=== PATIENT | male | born 1990 | race Caucasian/White ===

== ENCOUNTER 2020-07-06 15:42 | Emergency (ER) | payer OTHER, SELFPAY ==
[2020-07-06 15:46] VITALS: BP 139/94; PULSE 83; RESP 16; TEMP 36.5; O2SAT 97; BMI 33.9
--- NOTE | 2020-07-06 16:23 | ED.BACK ---
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 States believed he pulled his back last week, and re-injured it yesterday when picking something up. Denies direct trauma/fall or injury, numbness/tingling, weakness, urinary incontinence or retention, fever, chills MD elicited complaint: back pain Related Data Allergies Allergy/AdvReac Type Severity Reaction Status Date / Time No Known Allergies Allergy Unverified 01/22/20 16:44 [No Known Allergies*] Review of Systems Review of Systems: Constitutional: No Fever, No Chills Genitourinary: No Urinary Frequency, No Urinary Incontinence/retention Musculoskeletal: +back pain, No Myalgias, No Joint Swelling Skin: No Skin Lesions, No rash Neuro: No Weakness, No Numbness, No Paresthesias Yes all other systems are reviewed and are negative [facility] Past Medical History Attestation statement: The following information was validated with the patient. Medical History (Updated 07/06/20 @ 15:48 by Leon Ayoub) No known health problems Social History Social History Advance Directives: No Advance Directives Information Provided: No Physical Exam Vital Signs: Vital Signs: Last Vital Signs Temp 97.7 F 07/06/20 15:46 Pulse 83 07/06/20 15:46 Resp 16 07/06/20 15:46 BP 139/94 H 07/06/20 15:46 Pulse Ox 97 07/06/20 15:46 Body Mass Index 33.9 Const: General: cooperative, healthy appearing, comfortable, no acute distress and well developed Orientation/consciousness: patient oriented x3 Limitations: no limitations HENMT: Head: Yes normal to inspection Ears: hearing grossly normal bilaterally General nose exam: Normal external nose present Face and sinus: Yes normal facial exam Eyes: General: appearance normal, both eyes and all related structures EOM: EOMs intact bilaterally Neck: Neck: Yes normal visual inspection and Yes no meningeal signs Resp: Effort & Inspection: normal respiratory effort Cardio: Rate: regular rate Back/Spine/Pelvis: Other: No midline thoracic/lumbar spinous tenderness or step-off/deformity. + right-sided lower lumbar MSK/buttock tenderness to palpation Skin: Rashes: no rashes Wounds: no wounds Neuro: Other: No saddle anesthesia General: patient oriented x3, gait normal, tone normal, moves all extremities and no meningeal signs Gait exam (Neuro): Normal gait present Motor exam (neuro): 5/5 motor strength present throughout Extrem: General: Yes normal to inspection MDM - Back Pain/Injury MDM Narrative Medical decision making narrative: On exam VSS, NAD/well-appearing, no midline spinous tenderness throughout, no red flag symptoms. No saddle anesthesia. Likely MSK pain/sciatica. Low concern for cauda equina/cord compression
[2020-07-06] MEDS: Ketorolac Tromethamine 30 MG/ML VIAL IM (16:31)
[2020-07-06] MEDS: Lidocaine 4 % Patch ADH..PATCH 1 PATCH TRANSDERMA (16:31)
== END 2020-07-06 16:45 | disposition home or self-care (01) ==
PROVIDERS: Emergency Provider Emergency Medicine
DX: S39.92XA Unspecified injury of lower back, initial encounter (principal); X50.0XXA Overexertion from strenuous movement or load, initial encounter; X50.3XXA Overexertion from repetitive movements, initial encounter; X50.9XXA Other and unspecified overexertion or strenuous movements or postures, initial encounter; Y93.9 Activity, unspecified; Y92.9 Unspecified place or not applicable; Y99.0 Civilian activity done for income or pay
CPT/HCPCS: 96372; 99283; J1885

== ENCOUNTER 2022-08-24 13:29 | Emergency (ER) | payer OTHER, SELFPAY ==
--- NOTE | ~2022-08-24 | XR_ITS ---
EXAMINATION: XR foot LT min 3V, XR ankle LT min 3V CLINICAL INFORMATION: Rolled ankle COMPARISON: None. TECHNIQUE: 3 views of the left foot. 2 additional views of the left ankle. FINDINGS: Left foot: No fracture or dislocation. Alignment is anatomic. Joint spaces are maintained. The soft tissues appear unremarkable. No ankle joint effusion. Plantar heel spur. Left ankle: No fracture or dislocation. The ankle mortise is congruent. The soft tissues are unremarkable. XR/XR foot LT min 3V IMPRESSION: No fracture or malalignment involving the left foot or ankle.
--- NOTE | ~2022-08-24 | XR_ITS ---
EXAMINATION: XR foot LT min 3V, XR ankle LT min 3V CLINICAL INFORMATION: Rolled ankle COMPARISON: None. TECHNIQUE: 3 views of the left foot. 2 additional views of the left ankle. FINDINGS: Left foot: No fracture or dislocation. Alignment is anatomic. Joint spaces are maintained. The soft tissues appear unremarkable. No ankle joint effusion. Plantar heel spur. Left ankle: No fracture or dislocation. The ankle mortise is congruent. The soft tissues are unremarkable. XR/XR ankle LT min 3V IMPRESSION: No fracture or malalignment involving the left foot or ankle.
[2022-08-24 13:32] VITALS: BP 137/89; PULSE 94; RESP 18; TEMP 36.9; O2SAT 98; BMI 33.9
--- NOTE | 2022-08-24 13:32 | ED_ITS ---
HPI - Extremity Injury (Lower) General Chief Complaint: Extremity Injury, Lower <DAGMAR Boyd - Last Filed: 08/24/22 13:35> Stated Complaint: ankle INJ <DAGMAR Boyd - Last Filed: 08/24/22 13:35> Time Seen by Provider: 08/24/22 14:18 <DAGMAR Boyd - Last Filed: 08/24/22 13:35> Source: patient <Kathie Castellon NP - Last Filed: 08/24/22 15:06> Mode of arrival: wheelchair <Kathie Castellon NP - Last Filed: 08/24/22 15:06> Limitations: no limitations <Kathie Castellon NP - Last Filed: 08/24/22 15:06> History of Present Illness HPI Narrative: 31-year-old male previously healthy here with complaints of left ankle and foot pain after an inversion injury which occurred yesterday. Patient reports inability to ambulate due to pain with weight-bearing. No weakness, numbness or tingling of the extremity. No previous injury to the ankle or foot. <Kathie Castellon NP - Last Filed: 08/24/22 15:06> Related Data Home Medications: Previous Rx's Medication Instructions Recorded acetaminophen 500 mg tablet 500 mg PO Q6H PRN pain or fever 07/06/20 (Tylenol Extra Strength) #20 tabs cyclobenzaprine 5 mg tablet 5 mg PO Q8H PRN pain (scale score 07/06/20 7-10) 5 days #14 tabs lidocaine 5 % topical patch 1 patch topical DAILY PRN pain #30 07/06/20 (Lidoderm) ea naproxen 500 mg tablet 500 mg PO BID PRN pain 10 days #20 07/06/20 tabs <DAGMAR Boyd - Last Filed: 08/24/22 13:35> Allergies/Adverse Reactions: Allergies Allergy/AdvReac Type Severity Reaction Status Date / Time No Known Allergies Allergy Verified 08/24/22 13:32 [No Known Allergies*] <DAGMAR Boyd Last Filed: 08/24/22 13:35> Review of Systems Review of Systems: Yes all other systems are reviewed and are negative <NAT Gudino Last Filed: 08/24/22 15:06> Constitutional: Constitutional: Reports no additional constitutional c omplaints, Denies body ache(s), Denies chills, Denies fever(s), Denies headache(s) and Denies weakness <Kathie Castellon [employer]ISTERED PUBLIC SURVEYOR - Last Filed: 08/24/22 15:06> Eyes: Eyes: Reports no additional eye complaints and Denies change in vision <Kathie Castellon [employer] PUBLIC SURVEYOR - Last Filed: 08/24/22 15:06> ENT: Reports system reviewed and no additional complaints, except as documented, Denies dizziness, Denies headache(s), Denies nasal congestion, Denies nasal discharge and Denies neck pain <Kathie Castellon [employer] SURVEYOR - Last Filed: 08/24/22 15:06> Cardiovascular: Cardiovascular: Reports no additional cardiovascular complaints, Denies chest pain, Denies leg edema and Denies dyspnea <Kathie Castellon [employer]ISTERED PUBLIC SURVEYOR - Last Filed: 08/24/22 15:06> Respiratory: Respiratory: Reports no additional respiratory complaints, Denies cough and Denies dyspnea <Kathie Castellon [employer]ISTERED PUBLIC SURVEYOR - Last Filed: 08/24/22 15:06> Gastrointestinal: Gastrointestinal: Reports no additional gastrointestinal complaints, Denies abdominal pain, Denies diarrhea, Denies nausea and Denies vomiting <Kathie Castellon [employer]ISTERED PUBLIC SURVEYOR - Last Filed: 08/24/22 15:06> Genitourinary: Genitourinary: Denies urinary incontinence <Kathie Castellon REGISTERED PUBLIC SURVEYOR - Last Filed: 08/24/22 15:06> Musculoskeletal: Musculoskeletal: Reports no additional musculoskeletal c omplaints, Denies back pain, Reports arthralgias, Reports joint swelling, Denies neck pain, Denies numbness and Denies tingling <Kathie Castellon [employer]ISTERED PUBLIC SURVEYOR - Last Filed: 08/24/22 15:06> Integumentary/Breasts: Skin/Breast: Reports system reviewed and no additional complaints, except as docu and Denies rash <Kathie Castellon [employer]ISTERED PUBLIC SURVEYOR - Last Filed: 08/24/22 15:06> Neurologic: Reports system reviewed and no additional complaints, except as documented, Denies Abnormal speech present, Denies dizziness, Denies headache(s), Denies numbness, Denies tingling and Denies weakness <Kathie Castellon NP - Last Filed: 08/24/22 15:06> FORMERLY [facility], [facility]–1983 Past Medical History Attestation statement: The following information was validated with the patient. <Kathie Castellon NP - Last Filed: 08/24/22 15:06> Source: old records reviewed and nursing notes reviewed <Kathie Castellon NP - Last Filed: 08/24/22 15:06> Medical History: Medical History No known health problems <DAGMAR Boyd - Last Filed: 08/24/22 13:35> Social History Social History: Social History Advance Directives: No <DAGMAR Boyd - Last Filed: 08/24/22 13:35> Physical Exam Vital Signs: Vital Signs: Last Vital Signs Temp 98.5 F 08/24/22 13:32 Pulse 94 08/24/22 13:32 Resp 18 08/24/22 13:32 BP 137/89 08/24/22 13:32 Pulse Ox 98 08/24/22 13:32 O2 Del Method Room Air 08/24/22 13:32 BMI result Body Mass Index 33.9 <DAGMAR Boyd - Last Filed: 08/24/22 13:35> Vital Signs: Last Vital Signs Temp 98.5 F 08/24/22 13:32 Pulse 94 08/24/22 13:32 Resp 18 08/24/22 13:32 BP 137/89 08/24/22 13:32 Pulse Ox 98 08/24/22 13:32 O2 Del Method Room Air 08/24/22 13:32 BMI result Body Mass Index 33.9 <Kathie Castellon NP - Last Filed: 08/24/22 15:06> Const: General: cooperative, healthy appearing, comfortable and no acute distress <Kathie Castellon NP - Last Filed: 08/24/22 15:06> Orientation/consciousness: patient oriented x3 <Kathie Castellon [employer] SUR[employer]YOR - Last Filed: 08/24/22 15:06> Limitations: no limitations <Kathie Castellon [employer]ED PUBLIC SURVEYOR - Last Filed: 08/24/22 15:06> HEENT: Head: Yes normal to inspection <Kathie Castellon [employer] PUBLIC SURVEYOR - Last Filed: 08/24/22 15:06> Ears: hearing grossly normal bilaterally <Kathie Castellon [employer]YOR - Last Filed: 08/24/22 15:06> General nose exam: Normal external nose present <Kathie Castellon [employer]ED PUBLIC SUR[employer]YOR - Last Filed: 08/24/22 15:06> Face and sinus: Yes normal facial exam <Kathie Castellon [employer] PUBLIC SUR[employer]YOR - Last Filed: 08/24/22 15:06> Mouth: Normal oral and palatal mucosa present <Kathie Castellon [employer]ED PUBLIC SUR[employer]YOR - Last Filed: 08/24/22 15:06> Throat: Yes posterior oropharynx normal <Kathie Castellon [employer]ISTERED PUBLIC SURVEYOR - Last Filed: 08/24/22 15:06> Eyes: General: appearance normal, both eyes and all related structures <Kathie Castellon [employer] PUBLIC SURVEYOR - Last Filed: 08/24/22 15:06> Pupils: Equal, round and reactive pupils present <Kathie Castellon [employer] PUBLIC SURVEYOR - Last Filed: 08/24/22 15:06> Neck: Neck: Yes normal visual inspection <Kathie Castellon [employer] PUBLIC SURVEYOR - Last Filed: 08/24/22 15:06> Chest: Chest palpation & inspection: normal inspection of the chest <Kathie Castellon [employer] PUBLIC SURVEYOR - Last Filed: 08/24/22 15:06> Resp: Effort & Inspection: normal respiratory effort <Kathie Castellon REGISTERED PUBLIC SURVEYOR - Last Filed: 08/24/22 15:06> Auscultation: clear to auscultation bilaterally <Kathie Castellon REGISTERED PUBLIC SURVEYOR - Last Filed: 08/24/22 15:06> Cardio: Rate: regular rate <Kathie Castellon [employer]ISTER[employer] PUBLIC SURVEYOR - Last Filed: 08/24/22 15:06> Rhythm: regular rhythm <Kathie Castellon REGISTERED PUBLIC SURVEYOR - Last Filed: 08/24/22 15:06> Peripheral pulses: Peripheral pulses 2+ throughout <Kathie Castellon [employer] PUBLIC SUR[employer]YOR - Last Filed: 08/24/22 15:06> GI: Inspection: Yes normal to inspection <Kathie Castellon [employer] PUBLIC SUR[employer]YOR - Last Filed: 08/24/22 15:06> Palpation (GI): Soft to palpation and nontender <Kathie Castellon [employer] PUBLIC SUR[employer]YOR - Last Filed: 08/24/22 15:06> Auscultation: normal bowel sounds <Kathie Castellon, REGISTERED PUBLIC SURVEYOR - Last Filed: 08/24/22 15:06> Back/Spine/Pelvis: Thoracic/Lumbar Spine: thoracic and lumbar spine normal to inspection <Kathie Castellon [employer]ISTERED PUBLIC SUR[employer]YOR - Last Filed: 08/24/22 15:06> Skin: General skin exam: no rashes or lesions noted <Kathie Castellon [employer] PUBLIC SURVEYOR - Last Filed: 08/24/22 15:06> Neuro: General: patient oriented x3, no focal motor deficits and normal sensation to monofilament <Kathie Castellon [employer]ISTERED PUBLIC SURVEYOR - Last Filed: 08/24/22 15:06> Cranial nerves: Yes Equal, round and reactive pupils present <Kathie Castellon REGISTERED PUBLIC SURVEYOR - Last Filed: 08/24/22 15:06> Cognition (Neuro): normal cognition <Kathie Castellon [employer]ISTER[employer] PUBLIC SURVEYOR - Last Filed: 08/24/22 15:06> Speech: No Abnormal speech present <Kathie Castellon REGISTERED PUBLIC SURVEYOR - Last Filed: 08/24/22 15:06> Gait exam (Neuro): Normal gait present <Kathie Castellon [employer]ISTERED PUBLIC SURVEYOR - Last Filed: 08/24/22 15:06> Motor exam (neuro): 5/5 motor strength present throughout <Kathie Castellon [employer] PUBLIC SURVEYOR - Last Filed: 08/24/22 15:06> Extrem: Other: There is tenderness on palpation over the left lateral ankle with some mild swelling. There is some mild tenderness over the medial ankle with no swelling. There is some mild tenderness to the left 5th MTP with no obvious ecchymosis or swelling. Patient is able to flex and extend the ankle actively. He has normal DP and PT pulses. Sensation is intact distally. He does have some tenderness over the posterior ankle with a negative Kennedy test. no Achilles tendon deficit <Kathie Castellon NP - Last Filed: 08/24/22 15:06> General: Yes normal to inspection <Kathie Castellon NP - Last Filed: 08/24/22 15:06> Course Course Course Narrative: RME--31yo M w/no sig PMHx c/o L ankle pain s/p rolling while walking yesterday. Admits was unable to bear weight this AM. Denies fall, numbness/tingling L ankle with mild lateral malleolus swelling and ttp. NV intact XR ordered <DAGMAR Boyd - Last Filed: 08/24/22 13:35> Medical Decision Making Medical Decision Making [facility] Narrative: 31 yo yo male here with left ankle/foot pain after inversion injury which occurred yesterday with pain with WB Will check x-ray <Kathie Castellon NP - Last Filed: 08/24/22 15:06> Differential Diagnosis Differential Diagnoses: The differential diagnosis associated with the presentation includes <Kathie Castellon NP - Last Filed: 08/24/22 15:06> fracture, sprain Less likely Achilles tendon rupture <Kathie Castellon NP - Last Filed: 08/24/22 15:06> Independent Interpretation I performed an independent interpretation of an: Plain X-Ray <Kathie Castellon NP - Last Filed: 08/24/22 15:06> Interpretation: I independently reviewed the x-ray and agree with radiologist's report <Kathie Castellon NP - Last Filed: 08/24/22 15:06> Radiology Impression Discussion of test interpretation with radiology: I have reviewed the radiologist's reading. <Kathie Castellon NP - Last Filed: 08/24/22 15:06> Radiologist Impression: [address] [address] XRay Report Signed Patient: Jhon Mesa MR#: [id number] : 1990 Acct:[id number] Age/Sex: 31 / M ADM Date: 08/24/22 Loc: HO.ED Attending Dr: Ordering Physician: Ayla Messer Date of Service: 08/24/22 Procedure(s): XR ankle LT min 3V Accession Number(s): [id number] cc: Ayla Messer~ EXAMINATION: XR foot LT min 3V, XR ankle LT min 3V CLINICAL INFORMATION: Rolled ankle COMPARISON: None. TECHNIQUE: 3 views of the left foot. 2 additional views of the left ankle. FINDINGS: Left foot: No fracture or dislocation. Alignment is anatomic. Joint spaces are maintained. The soft tissues appear unremarkable. No ankle joint effusion. Plantar heel spur. Left ankle: No fracture or dislocation. The ankle mortise is congruent. The soft tissues are unremarkable. XR/XR ankle LT min 3V IMPRESSION: No fracture or malalignment involving the left foot or ankle. ? <Kathie Castellon NP - Last Filed: 08/24/22 15:06> Discharge Plan Discharge Clinical Impression: Ankle sprain and strain <DAGMAR Boyd - Last Filed: 08/24/22 13:35> Patient Disposition: Home, Self-Care <DAGMAR Boyd - Last Filed: 08/24/22 13:35> Instructions: Ankle Sprain (DC) <DAGMAR Boyd - Last Filed: 08/24/22 13:35> Additional Instructions: Use the Demario wrap and crutches for the next few days until able to bear weight without experiencing pain Apply ice to the area Elevate the limb Take Motrin or Tylenol for pain as needed Follow-up with primary care next week for any persistent symptoms <DAGMAR Boyd - Last Filed: 08/24/22 13:35> Prescriptions: No Action acetaminophen [Tylenol Extra Strength] 500 mg tablet 500 mg PO Q6H PRN (Reason: pain or fever) Qty: 20 0RF lidocaine [Lidoderm] 5 % adhesive patch,medicated 1 patch topical DAILY MDD remove after 12 hours PRN (Reason: pain) Qty: 30 0RF Rx Instructions: leave on most painful area for up to 12 hrs naproxen 500 mg tablet 500 mg PO BID PRN (Reason: pain) 10 Days Qty: 20 0RF cyclobenzaprine 5 mg tablet 5 mg PO Q8H PRN (Reason: pain (scale score 7-10)) 5 Days Qty: 14 0RF <DAGMAR Boyd - Last Filed: 08/24/22 13:35> Referrals: Physician,Unknown J [Physician] - 1 week <DAGMAR Boyd - Last Filed: 08/24/22 13:35> Stand Alone Forms: Work/School Release <DAGMAR Boyd - Last Filed: 08/24/22 13:35> Interventions: ED Discharge Assessment Last Done: 08/24/22 15:00 <DAGMAR Boyd - Last Filed: 08/24/22 13:35> Discharge Date/Time: 08/24/22 15:00 <DAGMAR Boyd - Last Filed: 08/24/22 13:35>
== END 2022-08-24 15:00 | disposition home or self-care (01) ==
PROVIDERS: Emergency Provider Emergency Medicine
DX: S93.402A Sprain of unspecified ligament of left ankle, initial encounter (principal); S96.912A Strain of unspecified muscle and tendon at ankle and foot level, left foot, initial encounter; X50.1XXA Overexertion from prolonged static or awkward postures, initial encounter; Y93.9 Activity, unspecified; Y92.480 Sidewalk as the place of occurrence of the external cause; Y99.9 Unspecified external cause status
CPT/HCPCS: 73610; 73630; 99282; 99283

== ENCOUNTER 2023-02-08 13:27 | Outpatient (AMB) | payer OTHER, SELFPAY ==
--- NOTE | 2023-02-08 14:44 | MHC.OFFWIV ---
Intake Vital Signs 02/08/23 14:50 Height 6 ft Weight 250 lb BMI 33.9 BP 122/76 Blood Pressure Location Rt brachial Position Sitting Pulse 80 Pulse Source Pulse Oximeter Temp 96.6 F L Temp Source Temporal Artery Scan Pulse Oximetry (%) 98 Oxygen Delivery Method Room Air Intake Visit Reasons: EST/work clearance from covid/[phone] Intake Note: Pt is here requesting a letter to return back to work after testing positive for COVID. Pt states he has a strong urine odor as well. Patient Tobacco Use Status: Never used Tobacco Allergies No Known Allergies [No Known Allergies*] Allergy (Verified 02/08/23 14:44) Do you need a note to return to daycare/school/sports/work: Yes HPI HPI Comments History of Present Illness Details The patient presents to urgent care for medical clearance. He was recently diagnosed with COVID and home for the past 3 days. He had COVID last week and believes he had it about 15 days ago. He was still testing positive over the weekend and recently had a negative COVID test yesterday. His work needs a note PFSH Medical History No known health problems Social History Patient Tobacco Use Status: Never used Tobacco Physical Exam Vital Signs: Last Vital Signs Temp 96.6 F L 02/08/23 14:50 Pulse 80 02/08/23 14:50 BP 122/76 02/08/23 14:50 Pulse Ox 98 02/08/23 14:50 Oxygen Delivery Method Room Air 02/08/23 14:50 BMI result Body Mass Index 33.9 Const General: healthy appearing and no acute distress Orientation/consciousness: patient oriented x3 Eyes Corneas: corneas normal Pupils: Equal, round and reactive pupils present Resp Effort & Inspection: normal respiratory effort and able to speak in complete sentences Neuro General: patient oriented x3 Cranial nerves: Yes Equal, round and reactive pupils present Psych Appearance: grossly normal Attitude: cooperative Results AMB Urinalysis, Automated UA Leukoctes 0 Jassi/uL Last Edit by Doreen Otto CMA on 02/08/23 14:58 UA Nitrite Negative Last Edit by Doreen Otto CMA on 02/08/23 14:58 UA Urobilinogen 0.2 mg/dL Last Edit by Doreen Otto, TRIP on 02/08/23 14:58 UA Protein 0 mg/dL Last Edit by Doreen Otto, TRIP on 02/08/23 14:58 UA pH 6.0 Last Edit by Doreen Otto, TRIP on 02/08/23 14:58 UA Blood 0 Edwin/uL Last Edit by Doreen Otto, TRIP on 02/08/23 14:58 UA Specific Mclean 1.020 Last Edit by Doreen Otto, TRIP on 02/08/23 14:58 UA Ketone Negative Last Edit by Doreen Otto, TRIP on 02/08/23 14:58 UA Bilirubin 0 mg/dL Last Edit by Doreen Otto, TRIP on 02/08/23 14:58 UA Glucose 0 mg/dL Last Edit by Doreen Otto, TRIP on 02/08/23 14:58 Results Reviewed Results Reviewed: Laboratory Last Values Urine pH (Auto) 6.0 02/08/23 14:58 Specific Mclean (Auto) 1.020 02/08/23 14:58 Urine Protein (Auto) 0 mg/dL 02/08/23 14:58 Glucose (UA)(Auto) 0 mg/dL 02/08/23 14:58 Urine Ketones (Auto) Negative 02/08/23 14:58 Urine Blood (Auto) 0 Edwin/uL 02/08/23 14:58 Urine Nitrite (Auto) Negative 02/08/23 14:58 Urine Bilirubin (Auto) 0 mg/dL 02/08/23 14:58 Urine Urobilinogen (Auto) 0.2 mg/dL 02/08/23 14:58 Leukocyte Esterase (Auto) 0 Jassi/uL 02/08/23 14:58 Assessment & Plan Assessment & Plan (1) Return to work evaluation: Code(s): Z76.89 - Persons encountering health services in other specified circumstances Plan The patient is medically cleared to return to work. Of note he had a UA done in the office today because he complained of strong odor to his urine x3 weeks. UA is negative Orders: Orders AMB Urinalysis Automated Today Z13.9 - Encounter for screening, unspecified Coding Level of Care Code Est Pt Level 3 (01044) Diagnoses Return to work evaluation Z76.89
[2023-02-08 14:50] VITALS: BP 122/76; PULSE 80; TEMP 35.9; O2SAT 98; BMI 33.9
== END 2023-02-08 15:08 | disposition home or self-care (01) ==
PROVIDERS: Visit Provider Emergency Medicine
DX: R82.998 Other abnormal findings in urine (principal); Z76.89 Persons encountering health services in other specified circumstances
CPT/HCPCS: 81003; 99213

== ENCOUNTER 2023-04-14 15:38 | Emergency (ER) | payer OTHER, SELFPAY ==
--- NOTE | ~2023-04-14 | CT_ITS ---
EXAMINATION: CT ABDOMEN AND PELVIS WITHOUT CONTRAST CLINICAL INFORMATION: Bilateral flank pain, question etiology. COMPARISON: CT abdomen and pelvis 06/05/2016. TECHNIQUE: Multidetector volumetric imaging was performed from the superior aspect of the liver through the pubic symphysis. Sagittal and coronal reformatted images were obtained on the technologist's workstation. This CT examination was performed using dose optimization techniques as appropriate, variously including the following: *Automated exposure control *Adjustment of mA and/or kV according to patient size (this includes techniques or standardized protocols for targeted exams where dose is matched to indication/reason for exam; i.e. extremities or head) *Use of iterative reconstruction technique DLP: 800 mGy-cm FINDINGS: LUNG BASES: The visualized lung bases are unremarkable. LIVER, GALLBLADDER, AND BILIARY TREE: The liver is normal in size, shape, and attenuation. No focal hepatic lesion or biliary ductal dilatation is present. The gallbladder is unremarkable with no evidence of radiopaque gallstones, gallbladder wall thickening, or obvious pericholecystic inflammatory changes. PANCREAS: No discrete mass or ductal dilatation. SPLEEN: Enlarged spleen measuring 15 cm. ADRENAL GLANDS: Normal; no mass. KIDNEYS AND URETERS: The kidneys are normal in size, shape, and attenuation. No hydronephrosis, hydroureter, or calculi seen. No perinephric stranding. BLADDER: Unremarkable. GASTROINTESTINAL TRACT: The small and large bowel are normal in caliber. The appendix is normal. No evidence of enteritis or colitis. No mesenteric mass or fluid. ABDOMINAL WALL: No significant hernia is appreciated. LYMPH NODES: No adenopathy. VASCULAR: Normal caliber aorta. Duplicated IVC. PELVIC VISCERA: Unremarkable. OSSEOUS STRUCTURES: Stable sclerotic lesion in the right iliac bone consistent with bone island. CT/CT abdomen pelvis wo IV con IMPRESSION: No acute findings in the abdomen/pelvis to correlate with bilateral flank pain. No nephrolithiasis or hydronephrosis. Mild splenomegaly measuring 15 cm similar to prior study. Fleischner guidelines do not apply in this age group.
[2023-04-14 15:54] VITALS: BP 126/85; PULSE 109; RESP 19; TEMP 37.1; O2SAT 100; BMI 35.2
[2023-04-14 16:36] LABS: MANUAL DIFF FLAG NO
--- NOTE | 2023-04-14 16:48 | ED.GENADULT ---
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 2 days ago when he came home he was doing fine no prior low back pain, woke up in the morning the pain bilateral lumbar area increases on certain movements no nausea no vomiting no hematuria no urinary symptoms no fever no chills no family history of kidney stone no lower extremity weakness or paresthesia Related Data Previous Rx's Medication Instructions Recorded cyclobenzaprine 10 mg tablet 10 mg PO Q8H #20 tabs 04/14/23 oxycodone-acetaminophen 5 mg-325 1 tab PO Q6H PRN pain #20 tabs 04/14/23 mg tablet (Percocet) Allergies Allergy/AdvReac Type Severity Reaction Status Date / Time No Known Allergies Allergy Verified 02/08/23 14:44 [No Known Allergies*] Review of Systems Review of Systems: Yes all other systems are reviewed and are negative FOR[facility]LY [facility] Past Medical History Medical History No known health problems Social History Social History Patient Tobacco Use Status: Never used Tobacco Advance Directives: No Advance Directives Information Provided: No Physical Exam ED Vital Signs: Vital Signs - 24 hr 04/14/23 15:54 04/14/23 17:28 Temperature 98.7 F 100.4 F Pulse Rate 109 H 102 H Respiratory Rate 19 18 Blood Pressure 126/85 129/84 Pulse Oximetry 100 97 Oxygen Delivery Method Room Air Room Air BMI result Body Mass Index 35.2 Appearance: Alert. Oriented X3. No acute distress. Eyes: PERRLA, No Nystagmus ENT: Pharynx normal. Oral Mucosa moist Neck: Normal inspection. Neck supple. CVS: Normal heart rate and rhythm. Pulses normal. Respiratory: No respiratory distress. Equal air entry bilateral, no wheezing/rales/rhonchi Abdomen: Soft and nontender. Bowel sounds are present, no mass palpable, no CVA tenderness Back: Diffuse tendon at lower lumbar paraspinal area no deformity SLR negative b/l Skin: Skin warm and dry. Normal skin color. Normal skin turgor. Extremities: No lower extremity edema. No calf tenderness Neuro: Oriented X 3. No motor deficit. No sensory deficit.No cerebellar signs , cranial nerves II-XII intact Medical Decision Making Differential Diagnosis Differential Diagnoses: The differential diagnosis associated with the presentation includes UTI/back strain/sciatica/kidney stone Lab Data MDM Lab Attestation statement: I reviewed the patient's lab results. 04/14/23 16:30 04/14/23 16:30 Labs: Lab Results 04/14/23 04/14/23 Range/Units 16:30 17:34 WBC 5.8 (4.8-10.8) X10*3/uL RBC 5.14 (4.60-5.80) X10*6/uL Hgb 15.2 (14.0-18.0) g/dl Hct 43.9 (42.0-52.0) % MCV 85.4 (80.0-98.0) fL MCH 29.6 (27.0-33.0) pg MCHC 34.6 (31.0-36.0) g/dl RDW 12.0 (11.0-16.0) % Plt Count 153 L (160-400) X10*3/uL MPV 10.1 (9.4-12.4) fL Immature Gran % (Auto) 0.3 (0.0-0.4) % Neut % (Auto) 82.9 H (45-73) % Lymph % (Auto) 8.9 L (20-40) % [place] % (Auto) 7.7 (2-11) % Eos % (Auto) 0.0 (0-4) % Baso % (Auto) 0.2 (0-2) % Lymph # (Auto) 0.5 L (1.2-4.9) X10*3/uL [place] # (Auto) 0.5 (0.1-1.2) X10*3/uL Eos # (Auto) 0.0 (0.0-0.4) X10*3/uL Baso # (Auto) 0.0 (0.0-0.2) X10*3/uL Abs Immat Gran (auto) 0.02 (0.00-0.03) X10*3/uL Absolute Neuts (auto) 4.8 (2.0-8.3) x10*3/uL Absolute Nucleated RBC 0.000 (0.0-0.012) X10*3/uL Nucleated RBC % (auto) 0.0 (0.0-0.2) /100WBC Sodium 138 (135-145) mmol/L Potassium 3.8 (3.3-5.1) mmol/L Chloride 106 (96-108) mmol/L Carbon Dioxide 19 L (22-29) mmol/L Anion Gap 17 (12-20) BUN 10 (9-16) mg/dL Creatinine 1.08 (0.5-1.4) mg/dL Estim Creat Clear Calc 128.8 Estimated GFR > 60 Random Glucose 125 H (60-115) mg/dL Calcium 9.8 (8.4-10.2) mg/dL Total Bilirubin 0.4 (0.0-1.0) mg/dL Direct Bilirubin 0.2 (0.0-0.5) mg/dL AST 25 (5-37) U/L ALT 16 (0-40) U/L Alkaline Phosphatase 68 (39-117) U/L Total Protein 7.6 (6.5-8.0) g/dL Albumin 4.5 (3.5-5.0) g/dL Lipase 14 (8-78) U/L Urine Color Yellow Urine Appearance Clear Urine pH 6.0 (5.0-9.0) Ur Specific [place] 1.010 (1.005-1.025) Urine Protein Negative (Neg-Trace) mg/dL Urine Glucose (UA) Negative (Negative) mg/dL Urine Ketones Negative (Negative) mg/dL Urine Blood Negative (Negative) Urine Nitrite Negative (Negative) Ur Leukocyte Esterase Negative (Negative) Independent Interpretation I performed an independent interpretation of an: CT Scan Interpretation: Negative acute Radiology Impression Discussion of test interpretation with radiology: I have reviewed the radiologist's reading. Discharge Plan Discharge Clinical Impression: Low back strain Patient Disposition: Home, Self-Care Instructions: Low Back Strain (ED) Additional Instructions: Take pain medication muscle relaxants as prescribed Apply ice pack Follow with PCP if pain gets worse or not better Prescriptions: New cyclobenzaprine 10 mg tablet 10 mg PO Q8H Qty: 20 0RF oxycodone-acetaminophen [Percocet] 5-325 mg tablet 1 tab PO Q6H PRN (Reason: pain) Qty: 20 0RF Rx Instructions: Partial Fill upon patient request.
[2023-04-14 16:51] LABS: Alanine Aminotransferase 16 U/L (0-40); Albumin Level 4.5 g/dL (3.5-5.0); Alkaline Phosphatase 68 U/L (39-117); Anion Gap 17 (12-20); Aspartate Amino Transferase 25 U/L (5-37); Bilirubin Direct 0.2 mg/dL (0.0-0.5); Bilirubin Total 0.4 mg/dL (0.0-1.0); Blood Urea Nitrogen 10 mg/dL (9-16); Calcium 9.8 mg/dL (8.4-10.2); Carbon Dioxide 19 mmol/L (22-29); Chloride 106 mmol/L (96-108); Creatinine Clr Calc Pharmacy 128.8; Estimated Glomerular Filt Rate > 60; Glucose Random 125 mg/dL (60-115); Lipase 14 U/L (8-78); Potassium 3.8 mmol/L (3.3-5.1); Sodium 138 mmol/L (135-145); Total Protein 7.6 g/dL (6.5-8.0)
[2023-04-14 16:52] LABS: Basophils Percent Auto 0.2 % (0-2); Hematocrit 43.9 % (42.0-52.0); Hemoglobin 15.2 g/dl (14.0-18.0); Imm Gran Abs Auto 0.02 X10*3/uL (0.00-0.03); Imm Gran Pct Auto 0.3 % (0.0-0.4); Lymphocytes Absolute Auto 0.5 X10*3/uL (1.2-4.9); Lymphocytes Percent Auto 8.9 % (20-40); Mean Corpuscular HGB Conc 34.6 g/dl (31.0-36.0); Mean Corpuscular Hemoglobin 29.6 pg (27.0-33.0); Mean Corpuscular Volume 85.4 fL (80.0-98.0); Mean Platelet Volume 10.1 fL (9.4-12.4); Monocytes Absolute Auto 0.5 X10*3/uL (0.1-1.2); Monocytes Percent Auto 7.7 % (2-11); Neutrophils Absolute Auto 4.8 x10*3/uL (2.0-8.3); Neutrophils Percent Auto 82.9 % (45-73); Platelet Count 153 X10*3/uL (160-400); Red Blood Count 5.14 X10*6/uL (4.60-5.80); White Blood Count 5.8 X10*3/uL (4.8-10.8)
[2023-04-14 17:28] VITALS: BP 129/84; PULSE 102; RESP 18; TEMP 38; O2SAT 97
[2023-04-14 17:38] LABS: Appearance Urine Clear; Color Urine Yellow; Glucose Urine UA Negative (Negative); Leukocyte Esterase Urine Negative (Negative); Nitrite Urine Negative (Negative); Urine Blood Negative (Negative); Urine Ketones Negative (Negative); Urine Protein Negative (Neg-Trace)
[2023-04-14 19:05] VITALS: BP 130/78; PULSE 93; RESP 14; TEMP 37.4; O2SAT 98
[2023-04-14] MEDS: Cyclobenzaprine HCl 10 MG TABLET PO (19:06)
[2023-04-14] MEDS: oxyCODONE HCl Immed Release 5 MG TABLET 10 MG PO (19:06)
== END 2023-04-14 19:09 | disposition home or self-care (01) ==
PROVIDERS: Emergency Provider Internal Medicine
DX: S39.012A Strain of muscle, fascia and tendon of lower back, initial encounter (principal); X58.XXXA Exposure to other specified factors, initial encounter; Y93.9 Activity, unspecified; Y92.9 Unspecified place or not applicable; Y99.9 Unspecified external cause status; R10.9 Unspecified abdominal pain; R16.1 Splenomegaly, not elsewhere classified
CPT/HCPCS: 36415; 74176; 80053; 81003; 82248; 83690; 85025; 99284

== ENCOUNTER 2024-10-06 15:10 | Emergency (ER) | payer OTHER, SELFPAY ==
--- NOTE | ~2024-10-06 | XR_ITS ---
EXAMINATION: XR CHEST CLINICAL INFORMATION: SOB COMPARISON: None available. TECHNIQUE: 2 views of the chest were obtained. FINDINGS: The cardiac, hilar, and mediastinal contours are normal. The lungs are clear bilaterally. There is no pneumothorax or pleural effusion. There is no focal osseous or soft tissue abnormality. XR/XR chest 2V IMPRESSION: Normal chest. Electronically signed by: Dedrick Quispe MD 10/06/2024 03:46 PM EDT
[2024-10-06 15:21] VITALS: BP 127/79; PULSE 83; RESP 18; TEMP 36; O2SAT 98; BMI 34.7
--- NOTE | 2024-10-06 15:22 | ED.GENADULT ---
HPI - General Adult General Chief complaint: Dyspnea Stated complaint: sob,cough Time Seen by Provider: 10/06/24 20:18 Source: patient Mode of arrival: ambulatory Limitations: no limitations History of Present Illness ED Provider: HPI narrative: patient otherwise healthy complaining of cough for last 1 week cough is mostly dry with wheezing in the night , mucoid phlegm patient is a cigarette smoker other family member were also sick at home Related Data Previous Rx's ?Medication ?Instructions ?Recorded cyclobenzaprine 10 mg tablet 10 mg PO Q8H #20 tabs 04/14/23 oxycodone-acetaminophen 5 mg-325 1 tab PO Q6H PRN pain #20 tabs 04/14/23 mg tablet (Percocet) albuterol sulfate 90 mcg/actuation 2 puff inhalation Q6H PRN 10/06/24 aerosol inhaler shortness of breath or wheezing #8.5 grams cefuroxime axetil 500 mg tablet 500 mg PO BID 7 days #14 tabs 10/06/24 guaifenesin 600 mg tablet, 600 mg PO Q12H PRN cough #20 tabs 10/06/24 extended release 12 hr (Mucinex) prednisone 20 mg tablet 40 mg (2 x 20 mg) PO DAILY #10 tabs 10/06/24 Allergies Allergy/AdvReac Type Severity Reaction Status Date / Time No Known Allergies Allergy Verified 10/06/24 15:24 [No Known Allergies*] Review of Systems Review of Systems: Yes all other systems are reviewed and are negative PMFSH Past Medical History Medical History No known health problems Social History Social History Patient Tobacco Use Status: Never used Tobacco Smoked in Last 30 Days: Yes Substance Use Type: Marijuana Substance Use Frequency: Occasionally Advance Directives: No Advance Directives Information Provided: Yes Physical Exam ED Vital Signs: Vital Signs - 24 hr 10/06/24 15:21 10/06/24 19:47 10/06/24 21:47 Temperature 96.8 F 98.5 F 98.5 F Pulse Rate 83 68 Respiratory Rate 18 18 18 Blood Pressure 127/79 120/78 133/89 Pulse Oximetry 98 98 Oxygen Delivery Method Room Air Room Air BMI result Body Mass Index 34.7 Appearance: Alert. Oriented X3. No acute distress. Eyes: no pallor or icterus ENT: Pharynx normal Oral Mucosa moist tympanic membrane intact no erythema, Neck: Normal inspection. Neck supple. CVS: Normal heart rate and rhythm. Pulses normal. Respiratory: No respiratory distress. Equal air entry bilateral, no wheezing/rales/rhonchi bilateral prolonged expiration Abd: soft, not tender Skin: Skin warm and dry. Normal skin color. Normal skin turgor. Extremities: No lower extremity edema, no calf tenderness Neuro: Oriented X 3. Course Course Course Narrative: This is an RME: Additional HPI, ROS, PE not included below will be deferred to primary provider. RME assessment and note performed by: Darlin Johnson PA-C This is a [id number]-male, with no known medical problems, who presents to the ER with complaints of cough and shortness of breath. Reports that while he was sleeping he awoke and felt like he couldn't catch his breath. He states that this lasted for 15 minutes and could not resolve. No recent travel, hospitalizations or surgeries. He is a smoker. Plan: labs, EKG, viral swabs, further ER evaluation needed. Medications Administered Discontinued Medications Generic Name Dose Route Start Last Admin Trade Name Freq PRN Reason Stop Dose Admin Albuterol Sulfate 4 puff 10/06/24 21:28 10/06/24 21:36 Albuterol Sulfate 90 Mcg 8 Gm Inhaler INHALE 10/06/24 21:29 4 puff ONCE ONE Administration Cefuroxime Axetil 500 mg 10/06/24 21:28 10/06/24 21:36 Cefuroxime Axetil 500 Mg Tablet PO 10/06/24 21:29 500 mg ONCE ONE Administration Prednisone 60 mg 10/06/24 21:28 10/06/24 21:36 Prednisone 20 Mg Tablet PO 10/06/24 21:29 60 mg ONCE ONE Administration Medical Decision Making Medical Decision Making [facility] Narrative: patient has acute bronchitis will give inhaler prednisone antibiotic chest x-ray negative for pneumonia Lab Data [facility] Lab Attestation statement: I reviewed the patient's lab results. 10/06/24 16:40 10/06/24 16:40 Labs: Lab Results 10/06/24 Range/Units 16:40 WBC 7.4 (4.8-10.8) X10*3/uL RBC 4.72 (4.60-5.80) X10*6/uL Hgb 14.1 (14.0-18.0) g/dl Hct 42.7 (42.0-52.0) % MCV 90.5 (80.0-98.0) fL MCH 29.9 (27.0-33.0) pg MCHC 33.0 (31.0-36.0) g/dl RDW 13.0 (11.0-16.0) % Plt Count 204 D (160-400) X10*3/uL MPV 10.7 (9.4-12.4) fL Immature Gran % (Auto) 0.5 H (0.0-0.4) % Neut % (Auto) 61.0 (45-73) % Lymph % (Auto) 30.6 (20-40) % [place] % (Auto) 7.1 (2-11) % Eos % (Auto) 0.5 (0-4) % Baso % (Auto) 0.3 (0-2) % Lymph # (Auto) 2.3 (1.2-4.9) X10*3/uL [place] # (Auto) 0.5 (0.1-1.2) X10*3/uL Eos # (Auto) 0.0 (0.0-0.4) X10*3/uL Baso # (Auto) 0.0 (0.0-0.2) X10*3/uL Abs Immat Gran (auto) 0.04 H (0.00-0.03) X10*3/uL Absolute Neuts (auto) 4.5 (2.0-8.3) x10*3/uL Absolute Nucleated RBC 0.000 (0.0-0.012) X10*3/uL Nucleated RBC % (auto) 0.0 (0.0-0.2) /100WBC Sodium 143 (135-145) mmol/L Potassium 4.2 (3.3-5.1) mmol/L Chloride 110 H (96-108) mmol/L Carbon Dioxide 26 (22-29) mmol/L Anion Gap 11 L (12-20) BUN 21 H (9-16) mg/dL Creatinine 1.23 (0.5-1.4) mg/dL Estim Creat Clear Calc 111.2 Estimated GFR > 60 Random Glucose 88 (60-115) mg/dL Calcium 9.7 (8.4-10.2) mg/dL Magnesium 2.2 (1.6-2.6) mg/dL Total Bilirubin 0.2 (0.0-1.0) mg/dL Direct Bilirubin < 0.2 (0.0-0.5) mg/dL AST 16 (5-37) U/L ALT 9 (0-40) U/L Alkaline Phosphatase 70 (39-117) U/L Troponin I High Sens < 2.7 (<3.5-35.0) ng/L Total Protein 7.1 (6.5-8.0) g/dL Albumin 4.5 (3.5-5.0) g/dL Influenza Type A (PCR) NEGATIVE (Negative) Influenza Type B (PCR) NEGATIVE (Negative) RSV RNA Qual (PCR) NEGATIVE (Negative) SARS-CoV-2 RNA (RT-PCR) NEGATIVE (Negative) Independent Interpretation I performed an independent interpretation of an: Plain X-Ray Discharge Plan Discharge Clinical Impression: Acute bronchitis Patient Disposition: Home, Self-Care Instructions: Acute Bronchitis (ED) Additional Instructions: take antibiotics prednisone inhaler as prescribed cough drops as prescribed stop smoking follow up with your PCP if not better Prescriptions: New prednisone 20 mg tablet 40 mg PO DAILY Qty: 10 0RF cefuroxime axetil 500 mg tablet 500 mg PO BID 7 Days Qty: 14 0RF guaifenesin [Mucinex] 600 mg tablet extended release 12hr 600 mg PO Q12H PRN (Reason: cough) Qty: 20 0RF albuterol sulfate 90 mcg/actuation HFA aerosol inhaler 2 puff inhalation Q6H PRN (Reason: shortness of breath or wheezing) Qty: 8.5 0RF No Action cyclobenzaprine 10 mg tablet 10 mg PO Q8H Qty: 20 0RF oxycodone-acetaminophen [Percocet] 5-325 mg tablet 1 tab PO Q6H PRN (Reason: pain) Qty: 20 0RF Rx Instructions: Partial Fill upon patient request. Stand Alone Forms: Work/School Release Interventions: ED Discharge Assessment Last Done: 10/06/24 21:47 Discharge Date/Time: 10/06/24 21:48 Print Language: [place]
--- NOTE | 2024-10-06 15:25 | ECG_ITS ---
Test Reason : dyspnea Blood Pressure : */* mmHG Vent. Rate : 79 BPM Atrial Rate : 79 BPM P-R Int : 198 ms QRS Dur : 72 ms QT Int : 362 ms P-R-T Axes : 44 41 34 degrees QTcB Int : 415 ms Normal sinus rhythm Normal ECG No previous ECGs available Referred By: Darlin Johnson Electronically Signed By: ESTHELA AMANDA
[2024-10-06 16:46] LABS: MANUAL DIFF FLAG NO
[2024-10-06 17:02] LABS: Basophils Percent Auto 0.3 % (0-2); Eosinophils Percent Auto 0.5 % (0-4); Hematocrit 42.7 % (42.0-52.0); Hemoglobin 14.1 g/dl (14.0-18.0); Imm Gran Abs Auto 0.04 X10*3/uL (0.00-0.03); Imm Gran Pct Auto 0.5 % (0.0-0.4); Lymphocytes Absolute Auto 2.3 X10*3/uL (1.2-4.9); Lymphocytes Percent Auto 30.6 % (20-40); Mean Corpuscular Hemoglobin 29.9 pg (27.0-33.0); Mean Corpuscular Volume 90.5 fL (80.0-98.0); Mean Platelet Volume 10.7 fL (9.4-12.4); Monocytes Absolute Auto 0.5 X10*3/uL (0.1-1.2); Monocytes Percent Auto 7.1 % (2-11); Neutrophils Absolute Auto 4.5 x10*3/uL (2.0-8.3); Platelet Count 204 X10*3/uL (160-400); Red Blood Count 4.72 X10*6/uL (4.60-5.80); White Blood Count 7.4 X10*3/uL (4.8-10.8)
[2024-10-06 17:06] LABS: Alanine Aminotransferase 9 U/L (0-40); Albumin Level 4.5 g/dL (3.5-5.0); Alkaline Phosphatase 70 U/L (39-117); Anion Gap 11 (12-20); Aspartate Amino Transferase 16 U/L (5-37); Bilirubin Direct < 0.2 mg/dL (0.0-0.5); Bilirubin Total 0.2 mg/dL (0.0-1.0); Blood Urea Nitrogen 21 mg/dL (9-16); Calcium 9.7 mg/dL (8.4-10.2); Carbon Dioxide 26 mmol/L (22-29); Chloride 110 mmol/L (96-108); Creatinine Clr Calc Pharmacy 111.2; Estimated Glomerular Filt Rate > 60; Glucose Random 88 mg/dL (60-115); Magnesium 2.2 mg/dL (1.6-2.6); Potassium 4.2 mmol/L (3.3-5.1); Sodium 143 mmol/L (135-145); Total Protein 7.1 g/dL (6.5-8.0)
[2024-10-06 17:16] LABS: Troponin-I High Sensitivity < 2.7 ng/L (<3.5-35.0)
[2024-10-06 17:41] LABS: Influenza A PCR NEGATIVE (Negative); Influenza B PCR NEGATIVE (Negative); Resp Syncy Virus RNA Qual PCR NEGATIVE (Negative); SARS COV2 PCR INHOUSE NEGATIVE (Negative)
[2024-10-06 19:47] VITALS: BP 120/78; RESP 18; TEMP 36.9
--- NOTE | 2024-10-06 19:51 | PC.NURSE ---
Pt resting on stretcher, not short of breath or coughing at this time. Awaiting provider to see patient.
[2024-10-06] MEDS: Albuterol Sulfate 90 MCG 8 GM INHALER 4 PUFF INHALE (21:36)
[2024-10-06] MEDS: predniSONE 20 MG TABLET 60 MG PO (21:36)
[2024-10-06] MEDS: cefuroxime axetiL 500 MG TABLET PO (21:36)
[2024-10-06 21:47] VITALS: BP 133/89; PULSE 68; RESP 18; TEMP 36.9; O2SAT 98
== END 2024-10-06 21:48 | disposition home or self-care (01) ==
PROVIDERS: Physician Assistant Medical; Emergency Provider Internal Medicine
DX: J20.9 Acute bronchitis, unspecified (principal); R06.02 Shortness of breath; R05.9 Cough, unspecified; F17.210 Nicotine dependence, cigarettes, uncomplicated; Z79.899 Other long term (current) drug therapy; Z03.818 Encounter for observation for suspected exposure to other biological agents ruled out
CPT/HCPCS: 0241U; 71046; 80048; 80076; 83735; 84484; 85025; 93005; 99284

== ENCOUNTER → 2024-10-06 15:24 | Outpatient (BNV) | payer OTHER, SELFPAY | PROVIDERS: Visit Provider Radiology Diagnostic Radiology | DX: R06.02 Shortness of breath (principal) | CPT/HCPCS: 71046 ==

== ENCOUNTER → 2024-10-06 15:25 | Outpatient (BNV) | payer OTHER, SELFPAY | PROVIDERS: Emergency Provider Internal Medicine; Visit Provider Internal Medicine | DX: R06.00 Dyspnea, unspecified (principal) | CPT/HCPCS: 93010 ==

== ENCOUNTER 2025-04-21 11:04 | Emergency (ER) | payer OTHER, SELFPAY ==
--- NOTE | ~2025-04-21 | CT_ITS ---
EXAMINATION: CT ABDOMEN PELVIS WITH IV CONTRAST HISTORY: abd pain epigastric elevated lipase COMPARISON: Comparison is made with the prior examination dated 04/14/2023. TECHNIQUE: CT scan of the abdomen and pelvis was performed following administration of 85 mL Omnipaque 350 using standard departmental protocol. Coronal and sagittal reformatted images were generated and reviewed. Oral contrast material was not administered at the request of the referring physician. This CT exam was performed with one or more of the following dose reduction techniques: automated exposure control, adjustment of the mA and/or kV according to patient size, use of iterative reconstruction technique. DLP: 698 mGy-cm FINDINGS: LOWER CHEST: The visualized lung bases are clear. There is no pleural effusion. CARDIOVASCULATURE: The heart is normal in size. There is no pericardial effusion. LIVER: The liver is normal in size and contour. No liver mass is identified. The hepatic and portal veins are patent. GALLBLADDER / BILE DUCTS: The gallbladder is contracted, without evidence of calcified stones. There is no intra or extrahepatic biliary ductal dilatation. SPLEEN: The spleen is enlarged. No focal splenic lesion is identified. PANCREAS: The pancreas is unremarkable in appearance. No peripancreatic inflammatory stranding or fluid is seen. ADRENAL GLANDS: Within normal limits. KIDNEYS/RETROPERITONEUM: No renal calculi are identified. There is no hydronephrosis. No renal masses are identified. LYMPH NODES: No abdominal or pelvic lymphadenopathy. VASCULATURE: The abdominal aorta is normal in caliber. There is a duplicated inferior vena cava. MESENTERY/PERITONEUM: No free fluid. No masses. There is no free intraperitoneal gas. STOMACH: The stomach is collapsed, limiting evaluation. SMALL BOWEL: The small bowel is normal in caliber. COLON: The colon is unremarkable. APPENDIX: Normal. URINARY BLADDER/PELVIC ORGANS: The urinary bladder is unremarkable. The prostate is normal in size. BONES / SOFT TISSUES: No suspicious bony or soft tissue abnormalities. CT/CT abdomen pelvis w IV con IMPRESSION: 1. No CT evidence of acute pancreatitis. 2. Splenomegaly. Electronically signed by: Kee Zhou MD 04/21/2025 03:12 PM [facility]
[2025-04-21 11:52] VITALS: BP 136/63; PULSE 67; RESP 18; TEMP 36.8; O2SAT 95; BMI 31.4
--- NOTE | 2025-04-21 11:53 | ED_ITS ---
HPI - Nausea/Vomiting/Diarrhea General Chief complaint: Nausea/Vomiting/Diarrhea Stated complaint: vomiting 3 days Time Seen by Provider: 04/21/25 12:47 Source: patient Mode of arrival: ambulatory Limitations: no limitations History of Present Illness ED Provider: SHIKHA DUBON Narrative: 34 yo male with no sig PMH he ate a hot dog from [employer] and then he started to have upper abdominal pain along with nonbloody n/v and diarrhea. He has no recent travel or procedures. No abx use. He notes he has not been able to tolerate much by mouth. He has never had this before. He denies drug or ETOH use. MD elicited complaint: nausea and vomiting Pertinent past history: other Onset (ago): day(s) (few) Description of vomiting: watery Description of diarrhea: watery Associated nausea: Yes Associated abdominal pain: Yes Location of pain: diffuse and epigastric Pain consistency: constant Severity: moderate Quality: aching Exacerbating factors: eating and bowel movement Relieving factors: none Context: possible food poisoning Associated symptoms: loss of appetite, malaise, nausea/vomiting and weakness Related Data Previous Rx's ?Medication ?Instructions ?Recorded cyclobenzaprine 10 mg tablet 10 mg PO Q8H #20 tabs 01/27 oxycodone-acetaminophen 5 mg-325 1 tab PO Q6H PRN pain #20 tabs 04/14/23 mg tablet (Percocet) albuterol sulfate 90 mcg/actuation 2 puff inhalation Q 6H PRN 10/06/24 aerosol inhaler shortness of breath or wheez ing #8.5 grams cefuroxime axetil 500 mg tablet 500 mg PO BID 7 days # 14 tabs 10/06/24 guaifenesin 600 mg tablet, 600 mg PO Q12H PRN cough #2 0 tabs 10/06/24 extended release 12 hr (Mucinex) prednisone 20 mg tablet 40 mg (2 x 20 mg) PO DAILY # 10 tabs 10/06/24 ondansetron 4 mg disintegrating 4 mg PO Q8H PRN nausea and 04/21/25 tablet vomiting #20 tabs Allergies Allergy/AdvReac Type Severity Reaction Status Date / Time No Known Allergies (No Known Allergy Verified 04/21/25 11:54 Allergies*) Review of Systems 2 Review of Systems: Yes all other systems are reviewed and are negative Gastrointestinal: Gastrointestinal: Reports nausea PMFSH Past Medical History Attestation statement: The following information was validated with the patient. Source: old records reviewed Medical History No known health problems Social History Social History Patient Tobacco Use Status: Never used Tobacco Substance Use Type: Marijuana Advance Directives: No Advance Directives Information Provided: No Physical Exam 2 Vital Signs: Vital Signs: Last Vital Signs Temp 97.7 F 04/21/25 14:12 Pulse 68 04/21/25 14:12 Resp 18 04/21/25 14:12 BP 106/64 04/21/25 14:12 Pulse Ox 96 04/21/25 14:12 O2 Del Method Room Air 04/21/25 14:12 BMI result Body Mass Index 31.4 Appearance: Alert. Oriented X3. No acute distress. Eyes: Pupils equal, round and reactive to light. ENT: Pharynx mildy dry MM. Neck: Normal inspection. Neck supple. CVS: Normal heart rate and rhythm. Pulses normal. Respiratory: No respiratory distress. Breath sounds normal. Abdomen: Soft and mild ttp along epigastric area no rebound or guarding. Skin: Skin warm and dry. Normal skin color. Normal skin turgor. Extremities: No lower extremity edema. No calf ttp Neuro: Oriented X 3. No motor deficit. No sensory deficit. CN2-12 intact Course Course Course Narrative: 34-year-old male with no significant past medical history ate a hot dog at [employer] and now is dealing with nonbloody vomiting and diarrhea. He has not had a fever. Risk factors such as sick contacts, antibiotic use, travel. He has not to keep anything down. He has very mild discomfort in the entire belly that he rates 6/10. He has not been able to tolerate any xsow-sxq-dvnkzfs medications to help his symptoms. At this time I am going to obtain basic labs and started on oral Zofran if he has a bowel movement we will send offer a GI panel. this is a RAPID medical screening exam the rest of the history and physical exam is to be done by the main provider. 11:54 AM 04/21/2025 (SHIKHA HOPKINS): Medications Administered Discontinued Medications Generic Name Dose Route Start Last Admin Trade Name Freq PRN Reason Stop Dose Admin Famotidine 20 mg 04/21/25 12:48 04/21/25 13:05 Famotidine/Pf 20 Mg/2 Ml Vial IVPUSH 04/21/25 12:49 20 mg ONCE ONE Administration Lactated Ringer's 1,000 mls @ 999 mls/hr 04/21/25 12:28 04/21/25 14:05 Lr IV 04/21/25 13:28 Infused .Q1H1M ONE Infusion Iohexol 100 ml 04/21/25 14:41 04/21/25 14:41 Iohexol 350 Mg/Ml 100 Ml Infus..Btl IV 04/21/25 14:42 85 ml ONCE ONE Administration Ketorolac Tromethamine 15 mg 04/21/25 12:48 04/21/25 13:05 Ketorolac Tromethamine 15 Mg/Ml Vial IVPUSH 04/21/25 12:49 15 mg ONCE ONE Administration Ondansetron HCl 4 mg 04/21/25 11:52 04/21/25 11:57 Ondansetron Odt 4 Mg Tab.Rapdis TRANSLINGU 04/21/25 11:53 4 mg ONCE ONE Administration Medical Decision Making Medical Decision Making MDM Narrative: 34 yo male with persistent n/v/d and abdominal pain without fevers or bloody stool at this time will need basic labs and stool study. I have ordered CT scan after pain and elevated lipase. He could have food toxicity, gastritis, pancreatitis, biliary colic Differential Diagnosis Differential Diagnoses: The differential diagnosis associated with the presentation includes food toxicity, dehydration, viral syndrome, pancreatitis, less likely biliary colic Admission/Observation Consideration of admission/observation: Escalation of care including admission/observation considered no sig abnormality PCP can follow-up ultrasound of spleen in the next 1-2 weeks Lab Data [facility] Lab Attestation statement: I reviewed the patient's lab results. 04/21/25 12:13 04/21/25 12:13 Labs: Lab Results 04/21/25 Range/Units 12:13 WBC 7.7 (4.8-10.8) X10*3/uL RBC 5.09 (4.60-5.80) X10*6/uL Hgb 15.0 (14.0-18.0) g/dl Hct 44.9 (42.0-52.0) % MCV 88.2 (80.0-98.0) fL MCH 29.5 (27.0-33.0) pg MCHC 33.4 (31.0-36.0) g/dl RDW 12.7 (11.0-16.0) % Plt Count 219 (160-400) X10*3/uL MPV 10.4 (9.4-12.4) fL Immature Gran % (Auto) 0.5 H (0.0-0.4) % Neut % (Auto) 53.6 (45-73) % Lymph % (Auto) 36.6 (20-40) % [place] % (Auto) 7.7 (2-11) % Eos % (Auto) 1.2 (0-4) % Baso % (Auto) 0.4 (0-2) % Lymph # (Auto) 2.8 (1.2-4.9) X10*3/uL [place] # (Auto) 0.6 (0.1-1.2) X10*3/uL Eos # (Auto) 0.1 (0.0-0.4) X10*3/uL Baso # (Auto) 0.0 (0.0-0.2) X10*3/uL Abs Immat Gran (auto) 0.04 H (0.00-0.03) X10*3/uL Absolute Neuts (auto) 4.1 (2.0-8.3) x10*3/uL Absolute Nucleated RBC 0.000 (0.0-0.012) X10*3/uL Nucleated RBC % (auto) 0.0 (0.0-0.2) /100WBC Sodium 140 (135-145) mmol/L Potassium 4.3 (3.3-5.1) mmol/L Chloride 108 (96-108) mmol/L Carbon Dioxide 26 (22-29) mmol/L Anion Gap 10 L (12-20) BUN 17 H (9-16) mg/dL Creatinine 0.91 (0.5-1.4) mg/dL Estim Creat Clear Calc 141.8 Estimated GFR > 60 Random Glucose 82 (60-115) mg/dL Calcium 10.1 (8.4-10.2) mg/dL Magnesium 2.1 (1.6-2.6) mg/dL Total Bilirubin 0.2 (0.0-1.0) mg/dL Direct Bilirubin < 0.2 (0.0-0.5) mg/dL AST 17 (5-37) U/L ALT 9 (0-40) U/L Alkaline Phosphatase 72 (39-117) U/L Total Protein 6.8 (6.5-8.0) g/dL Albumin 4.4 (3.5-5.0) g/dL Lipase 96 H (8-78) U/L Influenza Type A (PCR) NEGATIVE (Negative) Influenza Type B (PCR) NEGATIVE (Negative) RSV RNA Qual (PCR) NEGATIVE (Negative) SARS-CoV-2 RNA (RT-PCR) NEGATIVE (Negative) Independent Interpretation I performed an independent interpretation of an: CT Scan (No acute pathology) Radiology Impression Discussion of test interpretation with radiology: I have reviewed the radiologist's reading. External Record Review External record reviewed: Outpatient record Prescription Management I considered prescription management with: Other Discharge Plan Discharge Clinical Impression: Nausea vomiting and diarrhea Patient Disposition: Home, Self-Care Instructions: Acute Nausea and Vomiting (ED), Acute Diarrhea (ED) Additional Instructions: Your labs are overall reassuring he had a mild bump in your lipase which is related to your pancreas but we can see this in vomiting Your CT scan did not show any acute pathology or infection it did show mild enlargement of the spleen I do not think this is related to your symptoms I think this is an incidental finding he needs to repeat an ultrasound of your spleen in the next 1-2 weeks with your doctor Eat a very bland diet and lot of liquids for the next 3-5 days. Advance her diet very slowly including very small introduction of dairy Return for any worsening symptoms such as bloody stools, severe pain, fevers greater than 100.4 I would advise that you take an [id number] probiotic Prescriptions: New ondansetron 4 mg tablet,disintegrating 4 mg PO Q8H PRN (Reason: nausea and vomiting) Qty: 20 0RF No Action cyclobenzaprine 10 mg tablet 10 mg PO Q8H Qty: 20 0RF oxycodone-acetaminophen [Percocet] 5-325 mg tablet 1 tab PO Q6H PRN (Reason: pain) Qty: 20 0RF Rx Instructions: Partial Fill upon patient request. prednisone 20 mg tablet 40 mg PO DAILY Qty: 10 0RF cefuroxime axetil 500 mg tablet 500 mg PO BID 7 Days Qty: 14 0RF guaifenesin [Mucinex] 600 mg tablet extended release 12hr 600 mg PO Q12H PRN (Reason: cough) Qty: 20 0RF albuterol sulfate 90 mcg/actuation HFA aerosol inhaler 2 puff inhalation Q6H PRN (Reason: shortness of breath or wheezing) Qty: 8.5 0RF Stand Alone Forms: Work/School Release Print Language: Maori
[2025-04-21 12:17] LABS: MANUAL DIFF FLAG NO
--- NOTE | 2025-04-21 12:18 | PC.NURSE ---
Labs drawn and sent for analysis. Results pending. Awaiting ED provider evaluation. Care ongoing by this RN.
[2025-04-21 12:22] LABS: Hematocrit 44.9 % (42.0-52.0); Hemoglobin 15.0 g/dl (14.0-18.0); Imm Gran Abs Auto 0.04 X10*3/uL (0.00-0.03); Imm Gran Pct Auto 0.5 % (0.0-0.4); Lymphocytes Absolute Auto 2.8 X10*3/uL (1.2-4.9); Mean Corpuscular HGB Conc 33.4 g/dl (31.0-36.0); Mean Corpuscular Hemoglobin 29.5 pg (27.0-33.0); Mean Corpuscular Volume 88.2 fL (80.0-98.0); NRBC Abs Auto 0.000 X10*3/uL (0.0-0.012); NRBC Pct Auto 0.0 /100WBC (0.0-0.2); Platelet Count 219 X10*3/uL (160-400); Red Blood Count 5.09 X10*6/uL (4.60-5.80); White Blood Count 7.7 X10*3/uL (4.8-10.8)
[2025-04-21 12:41] LABS: Alanine Aminotransferase 9 U/L (0-40); Albumin Level 4.4 g/dL (3.5-5.0); Alkaline Phosphatase 72 U/L (39-117); Anion Gap 10 (12-20); Aspartate Amino Transferase 17 U/L (5-37); Blood Urea Nitrogen 17 mg/dL (9-16); Calcium 10.1 mg/dL (8.4-10.2); Carbon Dioxide 26 mmol/L (22-29); Chloride 108 mmol/L (96-108); Creatinine Clr Calc Pharmacy 141.8; Estimated Glomerular Filt Rate > 60; Lipase 96 U/L (8-78); Magnesium 2.1 mg/dL (1.6-2.6); Potassium 4.3 mmol/L (3.3-5.1); Sodium 140 mmol/L (135-145); Total Protein 6.8 g/dL (6.5-8.0)
[2025-04-21 12:59] LABS: Resp Syncy Virus RNA Qual PCR NEGATIVE (Negative); SARS COV2 PCR INHOUSE NEGATIVE (Negative)
[2025-04-21] MEDS: Lactated Ringers 1,000 ML 999 ML IV (13:05)
[2025-04-21 14:12] VITALS: BP 106/64; PULSE 68; RESP 18; TEMP 36.5; O2SAT 96
[2025-04-21] MEDS: iohexoL 350 MG/ML 100 ML INFUS..BTL IV (14:41)
[2025-04-21 15:10] VITALS: BP 110/63; PULSE 65; RESP 16; TEMP 36.6; O2SAT 96
[2025-04-21 15:35] VITALS: BP 110/63; PULSE 65; RESP 16; TEMP 36.6; O2SAT 96
--- NOTE | 2025-04-21 15:35 | PC.NURSE ---
NO ACTIVE VOMITING AT TIME OF DISCHARGE. PT AGREEABLE TO DISCHARGE PLAN
--- OUTSIDE RECORDS SUMMARY | 2025-04-21 15:57 | XMS_ITS | Clinical Summary ---
Author Organization [facility] Address [address] [place] [id number] Phone Care Team Providers Care Mechanical Maintenance Foreman Name Role Phone Unavailable Primary Care Provider Unavailabl e Immunizations Immunization Administration Dates Next Due DTP 05/06/1994, 4,05/06/1991,1989,03/06/1990,02/08/1990,01/04/1990,0 1989 Hep B, ped/adol 09/09/2001,06/03/2001,04/17/2001 Hib (PRP-T) 02/03/1991, 1,07/04/1990,1989 IPV 05/06/1991 Influenza, injectable, trivalent 06/12/2008 MMR 07/02/1995,02/03/1991 OPV 04/28/1994,02/08/1990,1989 Td (adult) (MBL), 2 Lf tetan us toxoid, PF, adsorbed 12/06/2001 Family History Relation Name Status Comments Paternal Grandfather Paterna l uncle: Migraines Social History Tobacco Use Types Packs/Day Years Used Date Smoking Tobacco: Never Assessed Sex and Gender Information Value Date Recorded Sex Assigned at Not on file Legal Sex Male 4:26 PM EDT Gender Identity Not on file Sexual Orientation Not on file Plan of Treatment Health Maintenance Due Date Last Done Comments DTaP,Tdap,and Td Vaccines (6 - Tdap) 12/07/2001 12/06/2001, 05/06/1994, 04/28/1994, Additional history exists Varicella Vaccines (1 of 2 - 13+ 2-dose series) 2002 HPV Vaccines (1 - 3-dose SCDM series) 2016 Influenza Vaccines (#1) 2024 06/12/2008 COVID-19 Vaccine ( - season) 2025 HIB Vaccines Completed 02/03/1991, 07/07, 07/04/1990, Additional history exists IPV Vaccines Completed 04/28/1994, 04/08, 02/08/1990, Additional history exists MMR Vaccines Completed 07/02/1995, 02/03/1991 Hepatitis B Vaccines Completed 09/09/2001, 06/03/2001, 04/17/2001 Hepatitis A Vaccines Aged Out No long er eligible based on patient's age to complete this topic Men B Vaccine Aged Out No longer elig ible based on patient's age to complete this topic Meningococcal Vaccine Aged Out No zeb preet eligible based on patient's age to complete this topic Pneumococcal Vaccine Aged Out No long er eligible based on patient's age to complete this topic
--- OUTSIDE RECORDS SUMMARY | 2025-04-21 15:57 | XMS_ITS | Clinical Summary ---
Author Organization [facility] Address [address] [place] [address] Phone Care Team Providers Care Capacity Management Specialist Name Role Phone Pcp, Unknown Primary Care Provider Unavailabl e Social History Tobacco Use Types Packs/Day Years Used Date Smoking Tobacco: Never Assessed Sex and Gender Information Value Date Recorded Sex Assigned at Not on file Legal Sex Male 12:27 PM EST Gender Identity Not on file Sexual Orientation Not on file Plan of Treatment Not on file Medical Devices Not on file Insurance [employer] [place] [address] [place] [address] [employer] [place] [id number] Care Teams Capacity Management Specialist Relationship Specialty Start Date End Date Pcp, Unknown PCP - General 03/21/22 Additional Source Comments The information contained in this document represents components of the legal health record. It is not the complete legal health record.[facility]
--- OUTSIDE RECORDS SUMMARY | 2025-04-21 15:57 | XMS_ITS | Data Portability ---
Author Organization [facility] [address] Address [address] [place] [address] Assessment No assessment recorded. Plan of Treatment Reminders Order Date Submit Date Provider Last Modified By Organization Details Last Modified Time Details Appointments None recorded. Lab None recorded. Referral None recorded. Procedures None recorded. Surgeries None recorded. Imaging None recorded. Medication Orders ketorolac 60 mg/2 mL intramuscul ar solution 2021 022 [email or web address] [id number], [address] [place], [address], 16:52:08 naproxen 500 mg tablet 2021 022 [email or web address] [id number], [address] [place], [address], 16:55:43 baclofen 20 mg tablet 2021 022 [email or web address] [id number], [address] [place], [address], 16:51:10 Patient TargetsNo targets recorded. Patient Instructions Encounter Date Encounter Id Patient Instructions Last Modified By Organization Details Last Modified Time 05/04/2022 [id number] learning about relief for back pain [email or web address] Not available 05/04/2022 16:33:58 back spasm: care instructions [email or web address] Not available 05/04/2022 16:40:49 Reason for Referral None Reported. Problems No Known Problems Procedures Surgical History Date Name Laterality Status Provider Name and Address Organization Details Recorded Time 3 OC-UDS Send Out Template DOT completed KIRAN Salinas [facility] 08/23/2022 12:45:44 Imaging Results None recorded. Procedure Notes None recorded. Medical Equipment None Reported. Allergies No known drug allergies Medications Name Sig Start Date Stop Date Status Note LastModified by Organization Details LastModified Time baclofen 20 mg tablet Take 1 tablet twice a day by oral route as needed for 10 days. 2021 active Not Available Not Available Not Avai lable ketorolac 60 mg/2 mL intramuscula r solution Inject 1 mL by intramuscul ar route. 2021 active Not Available Not Available Not Avai lable naproxen 500 mg tablet Take 1 tablet twice a day by oral route as needed. 2021 active Not Available Not Available Not Avai lable Vitals Date Recorded Body height Body mass index (BMI) Body weight Oxygen saturation Heart rate Respiratory rate Body temperature Systolic And Diastolic Provider Name and Address Organization Details Last Updated DateTime 182.88 cm 33.9 kg/m2 491123. 09 g 100 % 96 /min 18 /min 98.9 [degF] 146/87 mm[Hg] JONATHAN HCEN [email or web address] 16:15:04 Social History Question Answer Notes LastModified by [email or web address] Details LastModified Time Tobacco Smoking Status Current Every Day Smoker JONATHAN lackey Richard Pauer - [facility] 05/04/2022 16:10:09 How Much Tobacco Do You Smoke? 0.5 PPD [email or web address] Information not available 05/04/2022 Have You Recently Traveled Abroad? No [email or web address] Information not available 05/04/2022 Sex: Unknown Functional Status Question Answer Note LastModified by [email or web address] Details LastModified Time Do you use any illicit or recreational drugs? No Information not available 05/04/2022 Do you or have you ever used any other forms of tobacco or nicotine? No [email or web address] Information not available 05/04/2022 What is your level of alcohol consumption? None [email or web address] Information not available 05/04/2022 Mental Status None recorded. Family History Relationship Description Onset Age of this Age Resolved Age Notes LastModified by Organization Details LastModified Time Father No current problems or disability [email or web address] Not available 05/04 16:09:43 Mother No current problems or disability [email or web address] Not available 05/04 16:09:43 Medical History No medical history recorded. Past Encounters Encounter ID Performer Location Encounter Start Date Encounter Closed Date Diagnosis/Indication Diagnosis SNOMED-CT Code Diagnosis ICD10 Code Diagnosis IMO Codes Diagnosis Note [id number] [address] [place] [address] 01/17/2022 13:42:26 01/17/2022 15:14:02 [id number] [address] [place] [address] 07/26/2020 16:13:12 07/26/2020 18:03:56 [id number] [address] [place] [address] 08/06/2018 17:16:30 08/06/2018 17:47:05 [id number] [facility] DAN [address] [place] [address] 05/04/2022 13:15:04 05/04/2022 16:54:28 Acute low back pain 413322506 M54.50 Spasm of m uscle of lower back 4500003156 5784212 M62.830 The right erector spinae and longisimus thoracis muscles are in spasm. Likely due to acute impact/inj ury. This is generally a self limiting problem which means it will improve with time and rest. I am prescribin g you some muscle relaxers and anti-infla mmatory medication to take for pain relief as needed. Do not drink alcohol or drive while taking the muscle relaxer as it does cause drowsiness . I am also prescribin g an anti-infla mmatory to take for pain as well as directed/n eeded.I am writing you a work note to excuse you for yesterday and to stay out through 05/08/2022 . No heavy lifting, pushing or pulling while you are still having an active muscle spasm as this will exacerbate the problem. If you experience severe pain or worsening symptoms that are not controlled with the medication please proceed to ER promptly for pain control and further workup. [id number] Liana Eng MD [address] [place] [address] 08/23/2022 12:04:22 08/23/2022 12:48:09 History and physical examination, occupation 907093959 Z02.1 Health Concerns Section Related Observation LastModified by Organization Detai ls LastModified Time None Recorded Concern Status LastModified by Organization Details LastModified Time None Recorded Advance Directives Directive None Recorded Payers Insurance Date Sequence Insurance Name Policy Number Policy Roberts Covered Member ID Roberts Member ID Guarantor Name 05/04/2022 1 [facility] [id number] Jhon Mesa [id number] Jhon Mesa 08/23/2022 1 [facility] (MEDICAID HMO) [facility] Jhon Mesa [id number] Jhon Mesa 08/23/2022 2 [facility] (MEDICAID HMO) [employer] Jhon Mesa [id number] Jhon Mesa 08/23/2022 OC-ESCREEN Jhon Mesa [id number] Jhon Mesa Notes Date Note Type Note Provider Name and Address Organization Details Recorded Time 05/04/2022 text/html Jhon is a 31 yo M here for right low back injury onset 2 days ago. Notes he was walking on his driveway and slipped on ice causing right foot to sweep out from under him. He landed on his right buttock. Notes pain immediately went up to the right back muscles and up to the low thoracic muscles with spasm. Tried tylenol without relief. Having pain with flexion, bending forward. No paresthesias, weakness, saddle numbness, incontinence. No pain in the spine. 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 Asking for a note. LEVON Yanes, DAGMAR [address] [place], [address], [place] - [facility] 05/04/2022 16:56:01
--- OUTSIDE RECORDS SUMMARY | 2025-04-21 15:57 | XMS_ITS | Encounter Summary ---
Author Organization [facility] Address [address] [place] [address] Phone Care Team Providers Care Inspector Government Property Name Role Phone Alexander Aguilar MD Primary Care Provider Berhane julio Encounter Details Date Type Department Care Team (Late st Contact Info) Description 12/21/2016 Conversion Encounter [facility] - [address] [address] Social History Tobacco Use Types Packs/Day Years Used Date Smoking Tobacco: Never Assessed Sex and Gender Information Value Date Recorded Sex Assigned at Not on file Legal Sex Male 4:26 PM EDT Gender Identity Not on file Sexual Orientation Not on file documented as of this encounter Plan of Treatment Not on file documented as of this encounter Visit Diagnoses Not on filedocumented in this encounter Care Teams Inspector Government Property Relationship Specialty Start Date End Date Alexander Aguilar MD PCP - General 12/15/16 10/29/22 documented as of this encounter
== END 2025-04-21 15:36 | disposition home or self-care (01) ==
PROVIDERS: Emergency Provider Emergency Medicine
DX: R11.2 Nausea with vomiting, unspecified (principal); R10.10 Upper abdominal pain, unspecified; R19.7 Diarrhea, unspecified; Z03.818 Encounter for observation for suspected exposure to other biological agents ruled out; R74.8 Abnormal levels of other serum enzymes
CPT/HCPCS: 74177; 80048; 80076; 83690; 83735; 85025; 87637; 96361; 96374; 96375; 99284; 99285; J1308; J1885; J7120; Q9967

== ENCOUNTER → 2025-04-21 12:48 | Outpatient (BNV) | payer OTHER, SELFPAY | PROVIDERS: Emergency Provider Emergency Medicine; Visit Provider Radiology Diagnostic Radiology | DX: R16.1 Splenomegaly, not elsewhere classified (principal) | CPT/HCPCS: 74177 ==